=== PATIENT | male | born 1995 | race Hispanic/Latino ===

== ENCOUNTER 2022-10-14 20:07 | Emergency (ER) | payer BC ==
[~2022-10-14] VITALS: Ht 180.3 cm; Wt 81.4 kg
[2022-10-14] MEDS ORDERED: BACTRIM 160MG/800MG DS TAB PO ONE (23:45)
[2022-10-14] MEDS ORDERED: BACT800T5 PO (23:47)
[2022-10-14 23:51] VITALS: BP 108/59; TEMP 97.6; O2SAT 97
== END 2022-10-15 00:03 | disposition home or self-care (01) ==
LOC: M ED 20:07
DX: L02.31 Cutaneous abscess of buttock (principal); Z79.2 Long term (current) use of antibiotics